=== PATIENT | male | born 1985 | race Caucasian/White ===

== ENCOUNTER → 2016-12-03 | Outpatient (CLI) | payer BC, OTHER ==
[~2016-12-03] MED LIST: None per pt
== END ==
LOC: STAR 15:18
PROVIDERS: ATTEND Specialist
DX: Z02.9 Encounter for administrative examinations, unspecified (principal)

== ENCOUNTER 2016-12-07 06:09 | Day surgery (SDC) | payer BC, OTHER ==
[~2016-12-07] VITALS: Ht 172.7 cm; Wt 95.4 kg
[2016-12-07] MEDS ORDERED: LACTATED RINGERS 1,000 ML IV SCH (06:30)
[2016-12-07] MEDS ORDERED: EPINEPHRINE 1 MG/ML, 1ML ONE (06:50)
[2016-12-07] MEDS ORDERED: LIDOCAINE/PF 1%, 30ML ONE (06:50)
[2016-12-07] MEDS ORDERED: MIDAZOLAM 1 MG/ML, 2ML ONE (07:14)
[2016-12-07] MEDS ORDERED: FENTANYL PF 100 MCG/2ML ONE ×2 (07:14)
[2016-12-07] MEDS ORDERED: NEOSPORIN OINT, 15GM ONE (07:29)
[2016-12-07] MEDS ORDERED: ONDANSETRON 2MG/ML, 2ML ONE (07:43)
[2016-12-07] MEDS ORDERED: DEXAMETHASONE 4 MG/ML, 1ML ONE (07:43)
[2016-12-07] MEDS ORDERED: CEFAZOLIN 1,000 MG ONE (07:43)
[2016-12-07] MEDS ORDERED: ROCURONIUM 10 MG/ML ONE (07:43)
[2016-12-07] MEDS ORDERED: SUCCINYLCHOLINE 20 MG/ML, 10ML ONE (07:43)
[2016-12-07] MEDS ORDERED: KETOROLAC 30 MG/1 ML ONE (07:43)
[2016-12-07] MEDS ORDERED: PROPOFOL 10 MG/ML, 20ML ONE (07:43)
[2016-12-07] MEDS ORDERED: METOCLOPRAMIDE 5 MG/ML, 2ML ONE (07:43)
[2016-12-07] MEDS ORDERED: FENTANYL PF 100 MCG/2ML IV PRN (08:30)
[2016-12-07] MEDS ORDERED: HYDROmorphone 1 MG/ML, 1ML IV PRN (08:30)
[2016-12-07] MEDS ORDERED: PROMETHAZINE 25 MG/ML, 1ML IV PRN (08:30)
[2016-12-07] MEDS ORDERED: ALBUTEROL/IPRATROPIUM 2.5MG/0.5MG, 3 ML NPPB PRN (08:30)
[2016-12-07] MEDS ORDERED: MEPERIDINE/PF 25MG/0.5ML IVPush PRN (08:30)
[2016-12-07] MEDS ORDERED: OXYcodone 5 MG/5 ML ORAL.SOL UDC PO PRN (08:30)
[2016-12-07] MEDS ORDERED: MIDAZOLAM 1 MG/ML, 2ML IV PRN (08:30)
[2016-12-07] MEDS ORDERED: ONDANSETRON 2MG/ML, 2ML IVPush PRN (08:30)
[2016-12-07] MEDS ORDERED: DIAZEPAM 5 MG/ML, 2ML IVPush PRN (08:30)
[2016-12-07] MEDS ORDERED: ACETAMINOPHEN 325 MG TABLET PO PRN (08:30)
[2016-12-07] MEDS ORDERED: LABETALOL 5MG/ML, 20ML IV PRN (08:30)
[2016-12-07] MEDS ORDERED: ALBUTEROL SULFATE 2.5 MG/3 ML ONE (09:11)
== END 2016-12-07 11:30 ==
LOC: OUT 06:09
PROVIDERS: ATTEND Specialist
DX: L72.0 Epidermal cyst (principal); K21.9 Gastro-esophageal reflux disease without esophagitis
CPT/HCPCS: 11443; 88305; 94640; J0171; J0330; J0690; J1100; J1885; J2250; J2405; J2704; J2765; J3010; J3490; J7120; J7620